=== PATIENT | female | born 1960 | race Caucasian/White ===

== ENCOUNTER 2016-09-21 20:01 | Inpatient (IN) | payer OTHER ==
[~2016-09-21] VITALS: Ht 172.7 cm; Wt 60.0 kg
[2016-09-21 20:04] VITALS: BP 122/63; PULSE 87; RESP 15; TEMP 98.6; O2SAT 97
[2016-09-21] MEDS ORDERED: AUGM875T PO (21:09)
[2016-09-21] MEDS ORDERED: CLINDAMYCIN INJ 600 MG in SODIUM CHLORIDE 0.9% INJ 100 ML IV ONE (21:30)
[2016-09-21] MEDS ORDERED: KETOROLAC TROMETHAMINE 30 MG/ML (IVP) VIAL IV PUSH ONE (21:30)
--- NOTE | 2016-09-21 22:05 | PD ---
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 She was bit by a cat yesterday. She went to the emergency department and was given a prescription for Augmentin. She's taken for Augmentin tablets. Despite that she's had worsening pain swelling with redness spreading up the arm. No fevers. She can range the thumb where the bite is but it does hurt. No other complaints. History Past Medical History Narrative Medical "Lyme disease" Tetanus Vaccination: < 5 Years Influenza Vaccination: No Social History Alcohol Use: No Tobacco Use: No (quit 2 yrs ago) Allergies-Medications (Allergen,Severity, Reaction): Coded Allergies: Phenobarbital (Verified Allergy, Unknown, 09/21/16) Reported Meds & Prescriptions Reported Meds & Active Scripts Active Reported Augmentin (Amoxicillin-Clavulanate) 875-125 mg Tab 875 Mg PO BID not for use in CrCl <30 ml/min. Review of Systems Except as stated in HPI: all other systems reviewed are Neg Physical Exam Narrative GENERAL: Well 56-year-old woman, no acute distress. SKIN: Warm and dry. CARDIOVASCULAR: Warm and well perfused. RESPIRATORY: Normal rate and effort. MUSCULOSKELETAL: Puncture wound to the base of the right thumb, with 2 areas of injury with some surrounding erythema. There is some erythema around the thumb. The entire thumb is not displaying fusiform swelling. Erythema on the base of the hand on the radial side, with tracking erythema lymphangitis up the volar forearm. NEUROLOGICAL: Awake and alert. No gross deficits. Data Data Last Documented VS Vital Signs Date Time Temp Pulse Resp B/P Pulse Ox O2 Delivery O2 Flow Rate FiO2 09/21/16 20:04 98.6 87 15 122/63 97 Room Air Orders Complete Blood Count With Diff (09/21/16 21:25) Comprehensive Metabolic Panel (09/21/16 21:25) Hand, Limited (2vws) (09/21/16 ) Iv Access Insert/Monitor (09/21/16 21:25) Clindamycin Inj (Cleocin Inj) (09/21/16 21:30) Ketorolac Inj (Toradol Inj) (09/21/16 21:30) Admit To Inpatient (09/21/16 ) Vital Signs (Adult) Q4H (09/21/16 22:39) Activity Oob Ad Allie (09/21/16 22:39) Diet Heart Healthy (09/22/16 Breakfast) Sodium Chloride 0.9% Flush (Ns Flush) (09/21/16 22:45) Sodium Chloride 0.9% Flush (Ns Flush) (09/22/16 09:00) Basic Metabolic Panel (Bmp) (09/22/16 06:00) Complete Blood Count With Diff (09/22/16 06:00) Scd Bilateral/Knee High TEODORA.BID (09/21/16 22:39) Naloxone Inj (Narcan Inj) (09/21/16 22:45) Inpatient Certification (09/21/16 ) Clindamycin Inj (Cleocin Inj) (09/22/16 01:00) Lactobacillus Acidophilus (Lactinex) (09/22/16 09:00) Admit Order (Ed Use Only) (09/21/16 ) Labs Laboratory Tests Test 09/21/16 21:45 White Blood Count 6.5 TH/MM3 Red Blood Count 4.01 MIL/MM3 Hemoglobin 14.0 GM/DL Hematocrit 39.9 % Mean Corpuscular Volume 99.7 FL Mean Corpuscular Hemoglobin 34.8 PG Mean Corpuscular Hemoglobin 35.0 % Concent Red Cell Distribution Width 12.3 % Platelet Count 112 TH/MM3 Mean Platelet Volume 9.8 FL Neutrophils (%) (Auto) 62.4 % Lymphocytes (%) (Auto) 26.1 % Monocytes (%) (Auto) 10.4 % Eosinophils (%) (Auto) 0.6 % Basophils (%) (Auto) 0.5 % Neutrophils # (Auto) 4.1 TH/MM3 Lymphocytes # (Auto) 1.7 TH/MM3 Monocytes # (Auto) 0.7 TH/MM3 Eosinophils # (Auto) 0.0 TH/MM3 Basophils # (Auto) 0.0 TH/MM3 CBC Comment DIFF FINAL Differential Comment Sodium Level 140 MEQ/L Potassium Level 3.7 MEQ/L Chloride Level 105 MEQ/L Carbon Dioxide Level 27.0 MEQ/L Anion Gap 8 MEQ/L Blood Urea Nitrogen 12 MG/DL Creatinine 0.72 MG/DL Estimat Glomerular Filtration 83 ML/MIN Rate Random Glucose 83 MG/DL Calcium Level 8.8 MG/DL Total Bilirubin 0.3 MG/DL Aspartate Amino Transf 11 U/L (AST/SGOT) Alanine Aminotransferase 19 U/L (ALT/SGPT) Alkaline Phosphatase 90 U/L Total Protein 7.2 GM/DL Albumin 4.1 GM/DL [facility] Medical Decision Making Medical Screen Exam Complete: Yes Emergency Medical Condition: Yes Interpretation(s) LABS: CBC unremarkable. CMP unremarkable. Hand x-ray: No foreign bodies. Differential Diagnosis Lymphangitis, foreign body, abscess, other Narrative Course Medical decision making 56-year-old woman with a cat Bite to the right hand with worsening pain and erythema redness and spreading erythema up the forearm despite taking 4 doses of Augmentin. We'll need IV antibiotics. We will switch to clindamycin. We will markedly area of erythema. We'll get an x-ray to rule out foreign body. Patient will be admitted for IV antibiotics and monitoring. Diagnosis Primary Impression: Cat bite Additional Impression: Cellulitis Dominic Woodall MD Sep 21, 2016 22:05
[2016-09-21 22:10] VITALS: BP 108/53; PULSE 58; RESP 18; O2SAT 96
--- NOTE | 2016-09-21 22:13 | RADRPT ---
EXAM DATE/TIME: 09/21/2016 21:39 [facility] COMPARISON: No previous studies available for comparison. INDICATIONS : Evaluate for foreign body, cat bite MEDICAL HISTORY : None. SURGICAL HISTORY : None. ENCOUNTER: Initial ACUITY: 2 days PAIN SCORE: 8/10 LOCATION: Right Hand FINDINGS: Two view examination of the right hand demonstrates no soft tissue swelling, dislocation, or fracture . The joint spaces are maintained. Bony mineralization is normal. CONCLUSION: Unremarkable limited examination of the right hand. Fabian Low MD on September 21, 2016 at 22:11 Board Certified Radiologist. This report was verified electronically.
[2016-09-21 22:17] LABS: AUTOMATED NEUTROPHIL # 4.1 TH/MM3 (1.8-7.7); BASOPHIL % 0.5 % (0.0-2.0); EOSINOPHIL % 0.6 % (0.0-4.0); HEMATOCRIT 39.9 % (35.0-46.0); HEMO FLAGS DIFF FINAL; LYMPH % 26.1 % (9.0-44.0); LYMPHOCYTE # 1.7 TH/MM3 (1.0-4.8); MEAN CELL VOLUME 99.7 FL (80.0-100.0); MEAN CORPUSCULAR HEMOGLOBIN 34.8 PG (27.0-34.0); MONO % 10.4 % (0.0-8.0); NEUT % 62.4 % (16.0-70.0); PLATELET COUNT 112 TH/MM3 (150-450); RED BLOOD COUNT 4.01 MIL/MM3 (4.00-5.30); RED CELL DISTRIBUTION WIDTH 12.3 % (11.6-17.2); WHITE BLOOD COUNT 6.5 TH/MM3 (4.0-11.0)
[2016-09-21 22:32] LABS: ANION GAP 8 MEQ/L (5-15); AST (GOT) 11 U/L (15-37); BLOOD UREA NITROGEN 12 MG/DL (7-18); CHLORIDE 105 MEQ/L (98-107); GLOMERULAR FILTRATION RATE 83 ML/MIN (>89); POTASSIUM 3.7 MEQ/L (3.5-5.1); SODIUM (NA) 140 MEQ/L (136-145)
[2016-09-21 22:36] LABS: ALKALINE PHOSPHATASE 90 U/L (45-117); ALT (GPT) 19 U/L (10-53); TOTAL BILIRUBIN ADULT 0.3 MG/DL (0.2-1.0)
[2016-09-21] MEDS ORDERED: SODIUM CHLORIDE 0.9% FLUSH 5 ML FLUSH FLUSH PRN (22:45)
[2016-09-21] MEDS ORDERED: NALOXONE HCL 0.4 MG/ML AMP IV PRN (22:45)
[2016-09-22 00:25] VITALS: BP 102/50; PULSE 68; RESP 16; O2SAT 100
[2016-09-22] MEDS ORDERED: CLINDAMYCIN INJ 900 MG in SODIUM CHLORIDE 0.9% INJ 100 ML IV SCH (01:00)
--- NOTE | 2016-09-22 01:17 | HHI.HP ---
HPI Service [facility] Primary Care Physician No Primary Care Physician Admission Diagnosis Bite, right hand cellulitis Diagnoses: (1) Cat bite (2) Cellulitis Chief Complaint: cat bite/cellulitis Travel History International Travel<30 Days: No Contact w/Intl Traveler <30 Da: No Traveled to Known Affected Are: No History of Present Illness Ms. Ramsay is a 56 year-old female with a past medical history of systemic lyme disease who presented to the ER on 09/21/16 for cat bite that occurred on . The patient has a 24 year-old cat that she had taken to the plaster mechanic on Sunday and the cat bit the vet and Ms. Ramsay following a difficult needle stick. The patient noted the next morning that her right arm was red, painful and swollen and went to the urgent care center and was treated with Augmentin. By that night, the redness and swelling was going up her arm and she came to the ER. Right hand x-ray was unremarkable. The patient is anxious to return home as her 24-year-old cat is dying and she has no one to provide care for him while she is here in the hospital. That is why she had him at the plaster mechanic's on Sunday. For systemic lyme disease are: Sinter Machine Operator - Dr. Graham Marketing Development Specialist - Dr. Martinez Systemic Lyme Disease - on protocol that includes Omnicef and Rifabutin - was told to go off regimen while getting cat bite/cellulitis treated. . 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 Past Surgical History Hysterectomy Left elbow ORIF Vocal cord polypectomy Bladder biopsy and resection of cancerous lesion . Reported Medications Reported Meds & Active Scripts Active Reported Augmentin (Amoxicillin-Clavulanate) 875-125 mg Tab 875 Mg PO BID not for use in CrCl <30 ml/min. Allergies: Coded Allergies: Phenobarbital (Verified Allergy, Unknown, 09/21/16) Active Ordered Medications Current Medications Clindamycin Phosphate/Sodium Chloride (Cleocin Inj/NS Inj) 104 ml @ 208 mls/hr ONCE ONCE IV Last administered on 09/21/16 23:25; Start 09/21/16 at 21:30; Stop 09/21/16 at 21:59; Status DC Ketorolac Tromethamine (Toradol Inj) 30 mg ONCE ONCE IV PUSH Last administered on 09/21/16 22:12; Start 09/21/16 at 21:30; Stop 09/21/16 at 21:31 ; Status DC IV Flush (NS Flush) 2 ml UNSCH PRN FLUSH FLUSH AFTER USING IV ACCESS; Start at 22:45 IV Flush (NS Flush) 2 ml BID FLUSH ; Start 09/22/16 at 09:00 Naloxone HCl 0.4 mg 0.4 mg UNSCH PRN IV SEE LABEL COMMENTS; Start 09/21/16 at 22:45 Clindamycin Phosphate/Sodium Chloride (Cleocin Inj/NS Inj) 106 ml @ 212 mls/hr Q6H IV ; Start 09/22/16 at 01:00 Lactobacillus Acidophilus (Lactinex) 1 tab TID PO ; Start 09/22/16 at 09:00 Family History Family: Mom and Dad with COPD, CHF; Dad had diabetes mellitus, Sister with hypothyroidism and autoimmune hepatitis . Social History Tobacco: quit smoking February 2014 Alcohol: none . Physical Exam Vital Signs Vital Signs Date Time Temp Pulse Resp B/P Pulse Ox O2 Delivery O2 Flow Rate FiO2 09/22/16 00:25 68 16 102/50 100 Room Air 09/21/16 20:04 98.6 87 15 122/63 97 Room Air Physical Exam GENERAL: This is a well-nourished, well-developed patient, in no apparent distress. SKIN: No rashes, ecchymoses. Cool and dry. Right forearm with lengthy area from wrist to elbow mostly on supine aspect with irregularly bordered erythema and edema and warmth which has been circled by the RN in the ER with a black marker. Puncture wounds noted on medial aspect of left thumb and just inferior to the second digit which are slightly erythematous but not edematous without exudate. HEAD: Atraumatic. Normocephalic. EYES: No scleral icterus. No injection or drainage. ENT: Nose without bleeding, purulent drainage. NECK: Trachea midline. No JVD or lymphadenopathy. CARDIOVASCULAR: Regular rate and rhythm without murmurs, gallops, or rubs. RESPIRATORY: Clear to auscultation. Breath sounds equal bilaterally. No wheezes , rales, or rhonchi. GASTROINTESTINAL: Abdomen soft, non-tender, nondistended. No guarding. MUSCULOSKELETAL: Extremities without clubbing, cyanosis, or edema. No calf tenderness. NEUROLOGICAL: Awake and alert. Motor and sensory grossly within normal limits. Normal speech. . Laboratory Laboratory Tests Test 09/21/16 21:45 White Blood Count 6.5 Red Blood Count 4.01 Hemoglobin 14.0 Hematocrit 39.9 Mean Corpuscular Volume 99.7 Mean Corpuscular Hemoglobin 34.8 Mean Corpuscular Hemoglobin 35.0 Concent Red Cell Distribution Width 12.3 Platelet Count 112 Mean Platelet Volume 9.8 Neutrophils (%) (Auto) 62.4 Lymphocytes (%) (Auto) 26.1 Monocytes (%) (Auto) 10.4 Eosinophils (%) (Auto) 0.6 Basophils (%) (Auto) 0.5 Neutrophils # (Auto) 4.1 Lymphocytes # (Auto) 1.7 Monocytes # (Auto) 0.7 Eosinophils # (Auto) 0.0 Basophils # (Auto) 0.0 CBC Comment DIFF FINAL Differential Comment Sodium Level 140 Potassium Level 3.7 Chloride Level 105 Carbon Dioxide Level 27.0 Anion Gap 8 Blood Urea Nitrogen 12 Creatinine 0.72 Estimat Glomerular Filtration 83 Rate Random Glucose 83 Calcium Level 8.8 Total Bilirubin 0.3 Aspartate Amino Transf 11 (AST/SGOT) Alanine Aminotransferase 19 (ALT/SGPT) Alkaline Phosphatase 90 Total Protein 7.2 Albumin 4.1 Result Diagram: 09/21/16214409/21/162144 Imaging Last Impressions Hand X-Ray 09/21/16 0000 Signed Impressions: Service Date/Time: August 21:39 - CONCLUSION: Unremarkable limited examination of the right hand. Fabian Low MD Assessment and Plan Problem List: (1) Cat bite ICD Code: W55.01XA Status: Acute (2) Cellulitis ICD Code: L03.90 Status: Acute Assessment and Plan Cellulitis following cat bite - Clindamycin 900 mg q6h IV - Lactobacillus one tablet TID p.o. - VS q4h - Might be discharge in a.m. if continues to improve DVT prophylaxis - SCDs Written by Janiya Pennington, acting as scribe for Dr. Tolentino on 09/22/16 at 00:49. All or portions of this note were transcribed by scribe [Janiya Pennington]. I, Dr. Jessie Tolentino personally performed the history, physical exam, and medical decision making; and confirmed the accuracy of the information in the transcribed note. Authenticated by Dr. Jessie Tolentino on 09/22/16 at 0049 Discussed Condition With ER physician and patient . Physician Certification 2 Midnight Certification Type: Admission for Inpatient Services Order for Inpatient Services The services are ordered in accordance with Medicare regulations or non- Medicare payer requirements, as applicable. In the case of services not specified as inpatient-only, they are appropriately provided as inpatient services in accordance with the 2-midnight benchmark. Estimated LOS (days): 2 days is the estimated time the patient will need to remain in the hospital, assuming treatment plan goals are met and no additional complications. Post-Hospital Plan: Home Janiya Pennington Sep 22, 2016 01:17 Jessie Tolentino MD Nov 01, 2016 07:53
[2016-09-22 04:12] LABS: AUTOMATED NEUTROPHIL # 2.5 TH/MM3 (1.8-7.7); BASOPHIL % 0.7 % (0.0-2.0); EOSINOPHIL % 0.7 % (0.0-4.0); HEMATOCRIT 35.6 % (35.0-46.0); HEMO FLAGS DIFF FINAL; LYMPH % 37.8 % (9.0-44.0); MEAN CELL VOLUME 100.5 FL (80.0-100.0); MEAN CORPUSCULAR HGB CONC 34.8 % (32.0-36.0); MONO % 13.1 % (0.0-8.0); NEUT % 47.7 % (16.0-70.0); PLATELET COUNT 103 TH/MM3 (150-450); RED BLOOD COUNT 3.54 MIL/MM3 (4.00-5.30); RED CELL DISTRIBUTION WIDTH 11.8 % (11.6-17.2); WHITE BLOOD COUNT 5.2 TH/MM3 (4.0-11.0)
[2016-09-22 04:25] LABS: BICARBONATE 29.9 MEQ/L (21.0-32.0); POTASSIUM 3.8 MEQ/L (3.5-5.1)
[2016-09-22 04:35] VITALS: BP 106/56; PULSE 56; RESP 19; TEMP 97.4; TEMP 98.4; O2SAT 96
[2016-09-22] MEDS: CLINDAMYCIN INJ 900 MG in SODIUM CHLORIDE 0.9% INJ 100 ML IV SCH ×3 (05:03→15:39)
[2016-09-22 08:29] VITALS: BP 119/56; PULSE 67; RESP 20; TEMP 98.1; O2SAT 98
[2016-09-22] MEDS ORDERED: SODIUM CHLORIDE 0.9% FLUSH 5 ML FLUSH FLUSH SCH (09:00)
[2016-09-22] MEDS ORDERED: LACTOBACILLUS ACIDOPHILUS TAB PO SCH (09:00)
--- NOTE | 2016-09-22 10:36 | HHI.PR ---
Subjective Remarks Patient seen and evaluated in follow-up for cellulitis after cat bite. She reports that the swelling over her right hand has significantly improved. Erythema improved as well. She would like to go home today. Objective Vitals Vital Signs Date Time Temp Pulse Resp B/P Pulse Ox O2 Delivery O2 Flow Rate FiO2 09/22/16 08:29 98.1 67 20 119/56 98 09/22/16 04:35 98.4 56 19 106/56 96 09/22/16 04:35 97.4 56 19 106/56 96 09/22/16 00:25 68 16 102/50 100 Room Air 09/21/16 22:10 58 18 108/53 96 Room Air 09/21/16 20:04 98.6 87 15 122/63 97 Room Air Result Diagram: 09/22/16 0336 09/22/16 0336 Imaging Last Impressions Hand X-Ray 09/21/16 0000 Signed Impressions: Service Date/Time: August 21:39 - CONCLUSION: Unremarkable limited examination of the right hand. Fabian Low MD Objective Remarks GENERAL: This is a well-nourished, well-developed patient, in no apparent distress. SKIN: Right hand with very mild swelling on the dorsal side. There is a small puncture site over the dorsal thumb. There is mild erythema from the dorsal lateral and to the mid forearm. Compared to the previous marking, the erythema has significantly improved. No lymphangitis noted. CARDIOVASCULAR: Normal rate and regular rhythm without murmurs, gallops, or rubs. RESPIRATORY: Good respiratory efforts. Breath sounds equal and clear to auscultation bilaterally. GASTROINTESTINAL: Abdomen soft, non-tender, non-distended. Normal active bowel sounds MUSCULOSKELETAL:Range of motion of the thumb and wrist are intact. NEURO: Alert & Oriented x4 to person, place, time, situation. Moves all ext x4 PSYCH: Appropriate mood and affect. A/P Problem List: (1) Cat bite ICD Code: W55.01XA Status: Acute (2) Cellulitis ICD Code: L03.90 Status: Acute Assessment and Plan A/P Cellulitis following cat bite. Patient had 2 days of Augmentin but did not notice any improvement. She has been given clindamycin with marked improvement. - Clindamycin 900 mg q6h IV. Will wait for her to get a fourth dose today. Then can discharge home on clindamycin and Augmentin. - Lactobacillus one tablet TID p.o. Leeanne Roe MD Sep 22, 2016 10:36
[2016-09-22] MEDS ORDERED: CLEO300C2 PO (10:39)
--- NOTE | 2016-09-22 10:40 | HHI.DCPOC ---
Discharge Care Plan Diagnosis: (1) Cat bite (2) Cellulitis Goals to Promote Your Health * To prevent worsening of your condition and complications * To maintain your health at the optimal level Directions to Meet Your Goals Take your medications as prescribed Follow your dietary instruction Follow activity as directed Keep your appointments as scheduled Take your immunizations and boosters as scheduled If your symptoms worsen call your PCP, if no PCP go to Urgent Care Center or Emergency Room Smoking is Dangerous to Your Health. Avoid second hand smoke Call the 24-hour hour crisis hotline for domestic abuse at Leeanne Roe MD Sep 22, 2016 10:40
[2016-09-22 12:38] VITALS: BP 127/58; PULSE 58; RESP 20; TEMP 98.2; O2SAT 97
[2016-09-22 16:39] VITALS: BP 131/66; PULSE 55; RESP 20; TEMP 98.6; O2SAT 96
== END 2016-09-22 17:22 | disposition home or self-care (01) | DRG 605 ==
LOC: NEPC 20:01 → NEDA 22:50 → NEPFCDU 09-22 04:28
PROVIDERS: ADMIT Family Medicine; ATTEND Family Medicine
DX: S61.051A Open bite of right thumb without damage to nail, initial encounter (principal); A69.20 Lyme disease, unspecified; L03.011 Cellulitis of right finger; W55.01XA Bitten by cat, initial encounter; Z85.51 Personal history of malignant neoplasm of bladder; Z87.891 Personal history of nicotine dependence; Y93.89 Activity, other specified; Y92.89 Other specified places as the place of occurrence of the external cause; Y99.0 Civilian activity done for income or pay
CPT/HCPCS: 73120; 80048; 80053; 85025; 96374; J1885

== ENCOUNTER → 2016-11-15 | Day surgery (SDC) | payer OTHER ==
[~2016-11-15] MED LIST: ACETAMINOPHEN/HYDROcodone 325 MG/5 MG TAB ONE; AUGM875T PO; BUPIVACAINE/EPINEPHRINE 0.5% PF 30 ML VIAL ONE; CLEO300C2 PO; KETOROLAC TROMETHAMINE 30 MG/ML (IVP) VIAL IV PUSH ONE; LACTATED RINGER'S 1000 ML INJ 1,000 ML ONE; MEPERIDINE HCL 50 MG/ML VIAL ONE; ONDANSETRON HCL 4 MG/2 ML VIAL IV PUSH ONE; PROPOFOL 200 MG/20 ML AMP IV ONE; ceFAZolin INJ 1,000 MG VIAL ONE; metroNIDAZOLE 500 MG INJ 100 ML IV ONE
--- NOTE | 2016-11-15 12:17 | TN ---
cc: SHANNON BRODERICK M.D. DATE OF SURGERY: 11/15/2016 PREOPERATIVE DIAGNOSIS Lyme disease with symptoms consistent with biliary colic, normal imaging. POSTOPERATIVE DIAGNOSIS Lyme disease with symptoms consistent with biliary colic, normal imaging. PROCEDURE Laparoscopic cholecystectomy. ANESTHESIA General. SURGEON Dr. Broderick INDICATIONS This is a pleasant 56-year-old female who has been having some GI symptoms. She went to a Lyme disease expert in [place] and with numerous work-up they had recommended a cholecystectomy as people with Lyme disease in their treatment would benefit from a cholecystectomy when normal imaging. Plans were made for above. DETAILS OF PROCEDURE The patient was taken to the operating room and placed in the supine position. After anesthesia her abdomen is prepped with Betadine. We make an incision just below the umbilicus. A Veress needle is inserted. A saline load test is performed. The abdomen is insufflated up to 15 mmHg. Trocars are introduced, 5 mm below the xyphoid, 5 mm in between the two previously placed ports. The gallbladder can be seen. It does have some findings consistent with chronic inflammation. We are able to grasp it superiorly and laterally identifying the cystic duct and cystic artery both of which are doubly ligated and transected. The gallbladder is then teased off the gallbladder bed and pulled out through the umbilical incision. The liver is smooth, peritoneal surfaces are smooth. No other gross abnormality is seen. We look down into the pelvis. She is status post hysterectomy. I can see the right ovary, I cannot see the left ovary. Her appendix looks normal. She has some scar tissue in the right lower quadrant and this is sharply taken down with scissors on the electrocautery device as this adhesion was causing somewhat of an internal hernia. No gross abnormalities seen in the ascending, transverse or descending colon. After irrigating copiously hemostasis is assured. There is no biliary leakage. We then remove the irrigating solution. CO2 is removed. The ports are removed. The 10 mm port is closed with 0 Vicryl at the fascial layer and skin is closed with 4-0 Vicryl at all three sites. The patient tolerated the procedure well and had no immediate post-op complications. MD DENIS Lim/LALITHA /11:53 AM /12:08 PM
== END | disposition home or self-care (01) ==
LOC: ESDC 09:00
PROVIDERS: ATTEND Surgery
DX: A69.20 Lyme disease, unspecified (principal); R10.11 Right upper quadrant pain
CPT/HCPCS: 00790; 47562; 88304; J0690; J1885; J2175; J2405; J3010; J7120